=== PATIENT | female | born 2000 | race Two or more races ===

== ENCOUNTER 2021-06-28 16:30 | Outpatient (CLI) | payer OTHER | END 2021-06-28 16:31 | disposition home or self-care (01) | LOC: SLEEPLAB 16:30 | PROVIDERS: ATTEND Internal Medicine Critical Care Medicine | DX: G47.10 Hypersomnia, unspecified (principal) | CPT/HCPCS: 95800 ==

== ENCOUNTER 2022-02-14 19:00 | Outpatient (CLI) | payer OTHER | END 2022-02-14 19:01 | disposition home or self-care (01) | LOC: SLEEPLAB 19:00 | PROVIDERS: ATTEND Internal Medicine Pulmonary Disease | DX: R40.0 Somnolence (principal) | CPT/HCPCS: 95810 ==